=== PATIENT | male | born 1995 ===

== ENCOUNTER 2018-10-23 09:41 | Inpatient (IN) | payer OTHER ==
[~2018-10-23] VITALS: Ht 180.3 cm; Wt 93.4 kg
[~2018-10-23 09:41] MED LIST: ceFAZolin sod 1 GM in NS 55 ML IVPB ONE; ceFAZolin sod 2 GM in D5W 110 ML IVPB ONE
[2018-12-17] MEDS ORDERED: NKM (14:13)
[2018-12-18] VITALS (8 sets, daily range): BP systolic 114–152; BP diastolic 55–88
[2018-12-18] MEDS ORDERED: Rocuronium Bromide 50mg/5ml Inj IV ONE (06:35)
[2018-12-18] MEDS ORDERED: LR 1000ml 1,000 ML IVLG SCH (06:39)
--- NOTE | 2018-12-18 06:40 | Anethesia Preoperative Eval ---
Anesthesia Pre-op PMH/ROS General Date of Evaluation: Dec 18, 2018 Time of Evaluation: 07:06 Anesthesiologist: April ASA Score: ASA 2 Mallampati Score Class I : Soft palate, uvula, fauces, pillars visible Class II: Soft palate, uvula, fauces visible Class III: Soft palate, base of uvula visible Class IV: Only hard plate visible Mallampati Classification: Class I Surgeon: Javier Diagnosis: Back Pain Surgical Procedure: L4-5, L5-S1, Microdisectomy, Hemilaminotomy Anesthesia History: none Family History: no anesthesia problems Allergies: Coded Allergies: No Known Allergies (Unverified , 10/19/18) Medications: see eMAR Patient NPO?: Yes NPO Date: Dec 17, 2018 NPO Time: 2100 Past Medical History Cardiovascular: Reports: HTN Other: obesity - BMI 31 Anesthesia Pre-op Phys. Exam Physician Exam Last Vital Signs Date Time Temp Pulse Resp B/P (MAP) Pulse Ox O2 Delivery O2 Flow Rate FiO2 12/18/18 06:16 Room Air Constitutional: NAD Neurologic: CN 2-12 intact Cardiovascular: RRR Respiratory: CTA Gastrointestinal: S/NT/ND Airway Exam Mallampati Score: Class I MO: full ROM: full Teeth: intact Anesthesia Pre-op A/P Risk Assessment & Plan Assessment: ASA 2 Plan: GA, SED, GlideScope Go Status Change Before Surgery: No Pre-Antibiotics Dru Grams Ancef IV Given Within 1 Hr of Incision: Yes Time Given: 07:31 Wm Chen MD Dec 18, 2018 06:40
[2018-12-18] MEDS ORDERED: oxyCODONE HCL/Acetaminophen 5/325mg ORAL PRN (06:45)
[2018-12-18] MEDS ORDERED: Acetaminophen (Non formulary) 100 ML IV ONE (06:45)
[2018-12-18] MEDS ORDERED: Metoclopramide 10mg/2ml Inj IVP PRN ×2 (06:45→07:30)
[2018-12-18] MEDS ORDERED: Midazolam 2mg/2ml Inj IVP PRN (06:45)
[2018-12-18] MEDS ORDERED: LORazepam Inj 2mg/ml 1ml IV PRN (06:45)
[2018-12-18] MEDS ORDERED: DiphenhydrAMINE 50mg/ml Inj IVP PRN (06:45)
[2018-12-18] MEDS ORDERED: HYDROcodone/Acetamin 5/325 tab ORAL PRN ×2 (06:45→07:30)
[2018-12-18] MEDS ORDERED: Ketorolac 30mg Inj IV PRN ×2 (06:45)
[2018-12-18] MEDS ORDERED: HYDROcodone/Acetamin 7.5/325 tab ORAL PRN ×3 (06:45→07:30)
[2018-12-18] MEDS ORDERED: fentaNYL 100 mcg/2 mL IV PRN (06:45)
[2018-12-18] MEDS ORDERED: Labetalol 5mg/ml 20ml vial IV PRN (06:45)
[2018-12-18] MEDS ORDERED: Meperidine 50mg/ml Inj(FOR RIGORS ONLY) IVP PRN (06:45)
[2018-12-18] MEDS ORDERED: Atropine Sulfate 0.4mg/ml inj IVP PRN (06:45)
[2018-12-18] MEDS ORDERED: Hydromorphone 0.5mg/0.5ml inj IVP PRN (06:45)
[2018-12-18] MEDS ORDERED: Lidocaine 1% MPF 10mg/ml 5ml ONE (06:49)
[2018-12-18] MEDS ORDERED: Dexamethasone 4mg/ml vial ONE (06:49)
[2018-12-18] MEDS ORDERED: fentaNYL 100 mcg/2 mL IV ONE ×3 (06:50→09:05)
[2018-12-18] MEDS ORDERED: Lidocaine 1% Plain 30 ml INJ ONE (06:54)
[2018-12-18] MEDS ORDERED: NS Irrig 1000ml ONE (07:00)
[2018-12-18] MEDS ORDERED: Propofol 1,000mg/ 100ml btl IV ONE (07:00)
[2018-12-18] MEDS ORDERED: Sterile Water Irrig 1000ml IRRIG ONE (07:00)
[2018-12-18] MEDS ORDERED: Vancomycin 1gm vial IVPB ONE (07:00)
[2018-12-18] MEDS ORDERED: ceFAZolin sod 2 GM in D5W 110 ML IVPB ONE (07:00)
[2018-12-18] MEDS ORDERED: LR 1000ml ONE (07:00)
[2018-12-18] MEDS ORDERED: Ropivacaine 5mg/ml Vial 30ml INJ ONE (07:01)
[2018-12-18] MEDS ORDERED: Thrombin 5000 units TOPIC ONE (07:01)
[2018-12-18] MEDS ORDERED: Gelfoam Size TOPIC ONE (07:01)
[2018-12-18] MEDS ORDERED: Bacitracin 50000 Units Vial ONE (07:01)
--- NOTE | 2018-12-18 07:09 | Immediate Post-Op Evaluation ---
Immediate Post-Op Evalulation Immediate Post-Op Evalulation Procedure: L4-5, L5-S1, Microdisectomy, Hemilaminotomy Date of Evaluation: Dec 18, 2018 Time of Evaluation: 09:35 IV Fluids: 700 LR Blood Products: 0 Estimated Blood Loss: 25 Urinary Output: 150 Blood Pressure Systolic: 157 Blood Pressure Diastolic: 88 Pulse Rate: 79 Respiratory Rate: 16 O2 Sat by Pulse Oximetry: 100 Temperature (Fahrenheit): 97.4 Pain Score (1-10): 2 Nausea: No Vomiting: No Complications 0 Patient Status: awake, reacts, patent, extubated, none Hydration Status: adequate Dru Grams Ancef IV Given Within 1 Hr of Incision: Yes Time Given: 07:31 Wm Chen MD Dec 18, 2018 07:09
--- NOTE | 2018-12-18 07:10 | 48 Hour Post Anesthesia Eval ---
Post Anesthesia Evaluation Procedure: L4-5, L5-S1, Microdisectomy, Hemilaminotomy Date of Evaluation: Dec 18, 2018 Time of Evaluation: 11:54 Blood Pressure Systolic: 133 0: 78 Pulse Rate: 81 Respiratory Rate: 18 Temperature (Fahrenheit): 98.2 O2 Sat by Pulse Oximetry: 99 Airway: patent Nausea: No Vomiting: No Pain Intensity: 2 Hydration Status: adequate Cardiopulmonary Status: Stable Mental Status/LOC: patient returned to baseline Follow-up Care/Observations: 0 Post-Anesthesia Complications: 0 Follow-up care needed: N/A Wm Chen MD Dec 18, 2018 07:10
--- NOTE | 2018-12-18 07:20 | Pre-Procedure Note/Attestation ---
Pre-Procedure Note/Attestation Complete Prior to Procedure Planned Procedure: right Procedure Narrative: Right sided hemilaminotomy foraminotomy microdiscectomy of Lumbar 45 and Lumbar [id number] Indications for Procedure Pre-Operative Diagnosis: Herniation L45,5S`1 Attestation I attest that I discussed the nature of the procedure; its benefits; risks and complications; and alternatives (and the risks and benefits of such alternatives ), prior to the procedure, with the patient (or the patient's legal cash applications representative). I attest that, if there was a reasonable possibility of needing a blood transfusion, the patient (or the patient's legal cash applications representative) was given the [place] [employer] standardized written summary, pursuant to the [place] Blood Safety Act ([place] Health and Safety Code # 1645, as amended). I attest that I re-evaluated the patient just prior to the surgery and that there has been no change in the patient's H&P, except as documented below: Yonis Herrera MD Dec 18, 2018 07:20
--- NOTE | 2018-12-18 07:21 | Brief Operative Note ---
Immediate Post Operative Note Operative Note Chief Complaint: back pain and radiculopathy right more Pre-op Diagnosis: Herniation L45,5S`1 Procedure: Right sided hemilaminotomy foraminotomy microdiscectomy of Lumbar 45 and Lumbar [id number] Post-op Diagnosis: same as pre-op Findings: consistent w/pre-op dx studies Surgeon: Javier Pick Up Man: Khari Anesthesiologist: April Anesthesia: general Specimen: none Complications: none Condition: stable Fluids: IVF Estimated Blood Loss: minimal Drains: none Implant(s) used?: No Yonis Herrera MD Dec 18, 2018 07:21
[2018-12-18] MEDS ORDERED: Milk of Magnesia 30ml Ud ORAL PRN (07:30)
[2018-12-18] MEDS ORDERED: Chloraseptic Spray 20mL Bottle ORAL PRN (07:30)
[2018-12-18] MEDS ORDERED: Morphine Sulfate 2mg/ml Inj(IV/IM USE ONLY) IV PRN (07:30)
[2018-12-18] MEDS ORDERED: HYDROmorphone 1mg/ml Carpuject IVP PRN (07:30)
[2018-12-18] MEDS ORDERED: Morphine Sulfate 4mg/ml Inj (IV USE ONLY) IV PRN ×2 (07:30)
[2018-12-18] MEDS ORDERED: Naloxone 0.4mg/ml Inj IVP PRN (07:30)
[2018-12-18] MEDS ORDERED: Glycopyrrolate 0.2mg/ml 1ml Vial ONE (08:56)
[2018-12-18] MEDS ORDERED: Neostigmine 1mg/ml 10ml Inj ONE (08:56)
--- NOTE | 2018-12-18 11:00 | NUR ---
NURSE NOTES: received report from Anna RN, pt a/a/o x4 laying in bed with no signs of distress or no other issues at this time. surgical dressing dry and intact, ice pack in place. IV on the left had gauge 320 running NS+20mEq@100ml/hr. Neuro checks done. at bed side. call light within reach, bed in lowest position. side rales up x2. RN will review orders and will carry on as indicated. I will f/u as needed.
[2018-12-18] MEDS: Dexamethasone 4mg/ml vial IVP SCH ×3 (11:39→23:37)
[2018-12-18] MEDS: NS w/KCl 20mEq 1000ml 1,000 ML IV SCH ×2 (11:39→21:21)
--- NOTE | 2018-12-18 14:25 | NUR ---
PT EVALUATION NOTE Patient seen for initial evaluation s/p lumbar surgery. Patient educated in log roll technique and back precautions. Patient required SBA for bed mobility, transfers and ambulation x 20 ft. Participation limited by c/o "tightness" surgical area. Patient will benefit from skilled inpatient PT intervention to address mobility skills with adherence to back precautions, improve gait stability and for stair training. Anticipate discharge home once medically cleared by MD. No DME needs anticipated at this time. Addendum: 12/18/18 at 1455 by SHARAD MARTINEZ PT Amended: Links added.
[2018-12-18] MEDS: ceFAZolin sod 1 GM in D5W 55 ML IV SCH ×2 (15:49→23:34)
--- NOTE | 2018-12-18 16:20 | NUR ---
CASE MANAGEMENT:REVIEW 23 YR OLD MALE HERE FOR ELECTIVE SURGERY SI: BACK PAIN AND RADICULOPATHY 97.8 77 20 132/76 97% ON RA IS: TO SURGERY: HEMILAMINOTOMY,FORAMINOTOMY,MICRODISCECTOMY : TO MED/SURG 3E POSY OP
--- NOTE | 2018-12-18 16:30 | Operative Note - Dictated ---
DATE OF OPERATION: 12/18/2018 SURGEON: Yonis Herrera MD BOMB LOADER: LAURIE Harrison. ANESTHESIA: General endotracheal anesthesia. PREOPERATIVE DIAGNOSES: 1. Intractable back pain. 2. Intractable leg pain. 3. Worsening radiculopathy. 4. Weakness. 5. Herniated nucleus pulposus, L4-L5 and L5-S1 herniation. 6. Neural foraminal stenosis, L4-L5 and L5-S1. POSTOPERATIVE DIAGNOSES: 1. Intractable back pain. 2. Intractable leg pain. 3. Worsening radiculopathy. 4. Weakness. 5. Herniated nucleus pulposus, L4-L5 and L5-S1 herniation. 6. Neural foraminal stenosis, L4-L5 and L5-S1. PROCEDURES PERFORMED: 1. Right-sided L4-L5 and L5-S1 microdiscectomy. 2. L4-L5 and L5-S1 hemilaminotomy, foraminotomy and medial facetectomy. 3. L4-L5 and L5-S1 neural foraminotomy 4. Use of intraoperative microscope. 5. Supervision and interpretation of intraoperative fluoroscopy. 6. Supervision and interpretation of somatosensory-evoked potential and free running EMG monitoring. EBL: Less than 100 mL. COMPLICATIONS: None. INDICATIONS FOR THE PROCEDURE: The patient presents for intractable back pain and radiculopathy. The patient tried and failed a prolonged course of conservative management, including but not limited to chiropractic therapy, physical therapy, nonsteroidal anti-inflammatory drugs, medication, ice packs as well as epidural injection. Despite these therapies, the patient still developed recalcitrant pain and elected for definitive management in the form of right-sided L4-L5 and L5-S1 microdiscectomy, L4-L5 and L5-S1 hemilaminotomy, foraminotomy and medial facetectomy, L4-L5 and L5-S1 neural foraminotomy. CONSENT: We had a long discussion with the patient regarding definitive surgical treatment options. The patient's MRI demonstrated herniated nucleus pulposus, L4-L5 and L5-S1 herniation and neural foraminal stenosis, L4-L5 and L5-S1 and as a result, I felt the patient would benefit from the discectomy as well as neural foraminotomy at this level. We had a long discussion with the patient regarding the risks, alternatives, and benefits of surgery. Our description of the risks included a discussion in person as well as a signed consent which detailed all pertinent risks and the procedure itself. Briefly, our discussion included but was not limited to infection, bleeding, pseudarthrosis, spinal cord injury, neurovascular injury, dural tear, CSF leak, neuropathy, paralysis, permanent weakness/drop foot, paresthesias blindness, palsy and weakness. The patient understood there may be a need for revision surgery or additional procedures. Approach related complications including dysphonia, dysphagia, blindness, permanent vocal cord and neural injury, hematoma, swallowing and breathing difficulty. Medical complications including liver, kidney, shock, and cardiopulmonary failure. Anesthesia complications including , swelling. Damage to the musculature, larynx (voice injury or loss),esophagus (throat), trachea, blood vessels and muscles (muscular sprain) and lungs (pneumothorax) during this surgical procedure. Injury to deeper structures may be temporary or permanent. The patient understood these and elected to proceed. A written and verbal consent was given. We discussed the pros and cons of all the alternatives. We discussed the uncertainties associated with the decision. Afterwards I assessed the patients understanding and explored their preferences. All questions were answered and no guarantees were given. Medical clearance was obtained prior to surgery INTRAOPERATIVE FINDINGS: L4-L5: There was noticed to be a moderate sized disc herniation. The disc itself was spongy, not desiccated or dehydrated or degenerative from that standpoint. The disc was in fact initially noted to have tear in the PLL. This tear was approximately 20 degrees cephalad to caudad. Once the thecal sac and neural elements were retracted, I noticed the egress of the disc material, which was encroaching on the neural foramina. This disc itself was carefully resected with a combination of neural pituitaries and Kerrision rongeurs and arthroscopic pituitaries, which led back to the tear as mentioned in the posterior longitudinal ligament. L5-S1: There was evidence of neural foraminal stenosis. Once the thecal sac and neural foraminal elements were retracted, I noticed a very large disc herniation and fragment, which was visualized through a tear in the posterior longitudinal ligament again approximately 20 to 30 degrees inline with the posterior longitudinal ligament. The disc itself was rather large and encroaching so much that when the nerve root retractor was placed, there was obvious obstruction noted and difficulty to apply midline retraction. The disc itself was resected with a combination of neuro upbiting and arthroscopic pituitaries until the entire disc space was irrigated. Again, this was a large fragment. The disc itself in nature was not desiccated or dehydrated as would be expected with a degenerative fragment. DESCRIPTION OF PROCEDURE: Under the benefit of general endotracheal anesthesia and with the assistance of the entire operative team, the patient was moved from the rney onto the operative table in the prone position on a Yaya frame. The head was secured and positioned appropriately. Bilateral arms were secured with Gel pads and foam and all bony prominences were padded. The bilateral lower extremity SCD and DEYANIRA hose were placed for DVT prophylaxis. A surgical timeout was called which corroborated our planned procedure. Preoperative Antibiotics were administered within 30 minutes of the incision for prophylaxis. Decadron was given for preoperative steroids. Using lateral radiography, the operative levels were delineated. An incision was marked based on our interpretation of lateral radiography and afterwards the body was prepped and draped in the usual sterile manner. The family was notified that we were ready to commence surgery and were called in the waiting room hourly for updates An incision was based on our lateral fluoroscopic image to center the incision at the L5-S1 interspace. The wound was prepped and draped in the usual sterile fashion. Using a scalpel a midline incision was taken down through the skin and subcutaneous tissues until the overlying hemilamina of L4-L5 and L5-S1 were visualized. Next, using meticulous hemostasis, hemilamotomies were dissected and retractors were placed. Using a Mcbain dental, we confirmed placement at the L4-L5 and L5-S1 interspace. We next turned our attention to our decompression. A standard hemilaminotomy foraminotomy medial facetectomy was performed at each level in standard fashion using a Midas-Meño type AM8 drill bit, straight and angled curettage, and Kerrison 4 rongeurs until the lateral thecal sac margin and traversing nerve root was visualized. All remainders of the ligamentum flavum and lateral bony margins were resected in total with angled curettage and Kerrison 4 rongeurs until the lateral thecal sac margin and traversing nerve root was visualized and decompressed. We next turned our attention toward our L4-L5 microdiscectomy on the right side. A Trimble 4 was used to gently mobilize the thecal sac medially and this was held retracted with a bayonetted nerve root retractor. Once the thecal sac and neural elements were retracted, I noticed the egress of the disc material, which was encroaching on the neural foramina. The posterior margin of the disc was in fact initially noted to have tear in the PLL. This tear was approximately 20 degrees cephalad to caudad. This disc itself was carefully resected with a combination of neural pituitaries and Kerrision rongeurs and arthroscopic pituitaries, which led back to the tear as mentioned in the posterior longitudinal ligament.It was at this point that we noted a large disc protrusion with encroachment dorsally on the thecal sac neural foraminal contents. A bayonet and nerve root retractor was then placed carefully to retract the thecal sac and a discectomy was performed using a combination of a long handled 15 blade scalpel, downgoing and straight pituitaries and downgoing curettage. The disc itself was spongy, not desiccated or dehydrated or degenerative from that standpoint. Afterward the disc space was irrigated twice with 20 mL of antibiotic-impregnated saline. All loose and free-floating disc fragments were carefully resected with a narrow pituitary. Then we turned our attention toward our L5-S1 microdiscectomy on the right side. A Trimble 4 was used to gently mobilize the thecal sac medially and this was held retracted with a bayonetted nerve root retractor. It was at this point that we noted a large disc herniated nucleus pulposus protrusion with encroachment dorsally on the thecal sac neural foraminal contents. As a result of this there was evidence of neural foraminal stenosis. Once the thecal sac and neural foraminal elements were retracted, I noticed near the very large disc herniation and fragment, was emanating through a tear in the posterior longitudinal ligament again approximately 20 to 30 degrees inline with the posterior longitudinal ligament. The disc itself was rather large and encroaching so much that when the nerve root retractor was placed, there was obvious obstruction noted and difficulty to apply midline retraction. The disc itself was resected with a combination of neuro upbiting and arthroscopic pituitaries until the entire disc space was irrigated. Again, this was a large fragment. The disc itself in nature was not desiccated or dehydrated as would be expected with a degenerative fragment. With careful placement of the bayonetted nerve root retractor to retract the thecal sac and a discectomy was performed using a combination of a long handled 15 blade scalpel, downgoing and straight pituitaries and downgoing curettage. Afterward the disc space was irrigated twice with 20 mL of antibiotic-impregnated saline. All loose and free-floating disc fragments were carefully resected with a narrow pituitary. Having been satisfied with our decompression after our discectomy of all neural elements, we next turned our attention to our neural foraminoplasty/foraminotomy. This was performed with a combination of kerrison rongeurs and pituitaries which allowed for a re-creation of the neural foraminal arch at L4-L5 and L5-S1. Afterwards, hemostasis was obtained with 60 mL of antibiotic-impregnated saline followed by FloSeal and Gelfoam. After sponge and needle count were found to be correct, we next turned our attention to closure. Closure consisted of 1-0 Vicryl in standard interrupted fashion. Zosyn was placed deep to the fascia and superficial to the fascia for antibiotic prophylaxis. Skin closure was performed with 2-0 Vicryl in interrupted fashion followed by a running Monocryl for the skin. Final dressings consisted of Dermabond for the superficial skin, Telfa and Tegaderm. The patient tolerated the procedure well. The patient was extubated after the conclusion of surgery without incident. We discussed the findings of the surgery with the family upon completion of the case. At this point the patient will be transferred to the spine floor for further observation. Ynois Herrera M.D. DR: ASHLEY JOB#: [id number] CC: MARCUS
--- NOTE | 2018-12-18 17:14 | Diagnostic Imaging Report ---
INDICATION: Pain, intraoperative TECHNIQUE: Intraoperative imaging Fluoroscopy time: 5.1 seconds Total dose: 0.38452 mGym2 Total number of images: 1.51 COMPARISON: None FINDINGS: Intraoperative images demonstrate surgical tool projected posterior to the L5-S1 discs, subsequently overlying the L4-5 disc IMPRESSION: Intraoperative imaging, as described
[2018-12-18] MEDS: Docusate 100mg cap ORAL SCH (17:33)
--- NOTE | 2018-12-18 19:30 | NUR ---
NURSE NOTES: Receive a report from CELSO Cassidy. Pt is awake and alert. No acute distress noted. Op site is clear without bleeding sings. IV is running on left hand without infiltration. SCDs are on bilateral L/E. Encourage I/S every hour while awake. Call light within reach. Will continue to monitor.
--- NOTE | 2018-12-18 19:46 | NUR ---
HAND-OFF: Report given to Anh RN, pt in stable condition.
--- NOTE | 2018-12-18 21:00 | NUR ---
NURSE NOTES: After pain medication, pain relieved. No sensory change noted. No s/e noted. Call light within reach. Will continue to monitor.
[2018-12-19] VITALS: BP 124/55
[2018-12-19 04:00] VITALS: BP 123/57
[2018-12-19] MEDS: Dexamethasone 4mg/ml vial IVP SCH (05:56)
[2018-12-19] MEDS: ceFAZolin sod 1 GM in D5W 55 ML IV SCH (07:16)
[2018-12-19] MEDS: NS w/KCl 20mEq 1000ml 1,000 ML IV SCH (07:16)
--- NOTE | 2018-12-19 07:30 | NUR ---
HAND-OFF: Report given to Oscar HOUSTON. Round is done.
--- NOTE | 2018-12-19 07:45 | NUR ---
NURSE NOTES: Pt sitting in chair w/call light within reach. Pt A&Ox4, VSS, and in no apparent distress at this time. IV site intact/asymptomatic w/IVF infusing and surgical site C/D/I. Pt has no complaints or concerns at this time. Will continue to monitor.
[2018-12-19 08:00] VITALS: BP 134/74
[2018-12-19] MEDS: Docusate 100mg cap ORAL SCH (08:49)
--- NOTE | 2018-12-19 08:58 | General Progress Note ---
Assessment/Plan Assessment/Plan: Herniated nucleus pulposus, L4-L5 and L5-S1 herniation. Neural foraminal stenosis, L4-L5 and L5-S1. Right-sided L4-L5 and L5-S1 microdiscectomy. L4-L5 and L5-S1 hemilaminotomy, foraminotomy and medial facetectomy. PLAN 1. incentive spirometry 2. SCD 3. PT evaluation and therapy 4. Hydration 5. Pain management 6. discharge once stable with outpatient follow up Subjective Allergies: Coded Allergies: No Known Allergies (Unverified , 10/19/18) Subjective asked to follow up post op Objective Last 24 Hour Vital Signs Date Time Temp Pulse Resp B/P (MAP) Pulse Ox O2 Delivery O2 Flow Rate FiO2 12/19/18 08:00 98.4 69 18 134/74 (94) 99 12/19/18 04:00 98.9 80 17 123/57 (79) 96 12/19/18 00:00 99.1 84 17 124/55 (78) 96 12/18/18 21:00 Room Air 12/18/18 20:00 98.7 78 19 127/55 (79) 95 12/18/18 16:20 97.5 12/18/18 10:45 97.5 12/18/18 10:15 97.5 67 17 134/75 Room Air 12/18/18 10:00 69 15 135/78 Room Air 12/18/18 09:50 61 17 114/63 Simple Mask 6 12/18/18 09:40 77 16 120/67 Simple Mask 6 12/18/18 09:30 68 15 128/75 99 Simple Mask 6 12/18/18 09:22 81 18 99 12/18/18 09:20 97.4 79 16 152/88 100 Simple Mask 6 Intake and Output 12/18/18 12/19/18 19:00 07:00 Intake Total 2850 ml 1460 ml Balance 2850 ml 1460 ml Intake Oral 2600 ml 360 ml IV Total 250 ml 1100 ml # Voids 3 3 Height (Feet): 5 Height (Inches): 11.00 Weight (Pounds): 206 Objective WDWN NAD clear breath sounds bilaterally without rhonchi or wheeze [id number] without MRG NABS nontender no HSM no CCE nonfocal Randall Kumar MD Dec 19, 2018 08:58
--- NOTE | 2018-12-19 11:15 | NUR ---
NURSE NOTES: Pt discharged home and escorted downstairs via w/c to 's private vehicle. All belongings accounted for; D/C summary provided; and ID wristband and IV S/L removed.
--- NOTE | 2018-12-21 11:58 | Discharge Summary ---
Discharge Summary Hospital Course Date of Admission Dec 18, 2018 at 05:37 Date of Discharge Dec 19, 2018 at 11:11 Admitting Diagnosis LUMBAR RADICULOPATHY, HERNIATION, INTRACTABLE BACK PAIN Reason for Hospitalization: elective surgery HPI Ayush Barker is a 23 year old male who was admitted on Dec 18, 2018 at 05:37 for Herniated Nucleus Pulposus, Pain, Radiculopathy Consultations dr Kumar -IM Procedures s/p 12/18/[address] Herrera 1. Right-sided L4-L5 and L5-S1 microdiscectomy. 2. L4-L5 and L5-S1 hemilaminotomy, foraminotomy and medial facetectomy. 3. L4-L5 and L5-S1 neural foraminotomy through a transpedicular intraforaminal approach. 4. Use of intraoperative microscope. 5. Supervision and interpretation of intraoperative fluoroscopy. 6. Supervision and interpretation of somatosensory-evoked potential and free running EMG monitoring. Hospital Course status post surgery course of recovery uneventful initially IV fluids s/p perioperative antibiotic and steroid neurovascular status closely monitored, remains stable incision with dressing clean , dry, and intact pain management addressed , and pain controlled remains hemodynamically stable ambulated with PT fall precautions maintained; safe for ambulation DVT prophylaxis with SCD provided use of incentive spirometry was encouraged while in the bed tolerated diet , IV fluids discontinued Chloraseptic spray was on board as needed for comfort voided freely bowel regimen instituted patient was stable for discharge discharge instructions provided follow up with surgeon in the office as advised FINAL DIAGNOSES 1. Intractable back pain. 2. Intractable leg pain. 3. Worsening radiculopathy. 4. Weakness. 5. Herniated nucleus pulposus, L4-L5 and L5-S1 herniation. 6. Neural foraminal stenosis, L4-L5 and L5-S1. 7. s/p Right sided hemilaminotomy foraminotomy microdiscectomy of Lumbar 4-5 and Lumbar 5 Sacral1 Discharge Condition Upon Discharge: stable Discharge Disposition Patient was discharged to Home (01) Discharge Instructions Discharge Instructions Special Instructions I have been assigned to complete a D/C Summary on this account. I was not involved in the patient management Nicci Montaño NP Dec 21, 2018 11:58
== END 2018-12-19 11:11 | disposition home or self-care (01) | DRG 520 ==
LOC: SDSOVERFLO 12-18 05:37 → 3E 12-18 10:40
PROC: 01NB0ZZ Release Lumbar Nerve, Open Approach (ICD-10-PCS; principal; 2018-12-18 07:00)
PROC: 0SB20ZZ Excision of Lumbar Vertebral Disc, Open Approach (ICD-10-PCS; principal; 2018-12-18 07:00)
PROC: 01NR0ZZ Release Sacral Nerve, Open Approach (ICD-10-PCS; principal; 2018-12-18 07:00)
PROC: 0SB40ZZ Excision of Lumbosacral Disc, Open Approach (ICD-10-PCS; principal; 2018-12-18 07:00)
DX: M51.16 Intervertebral disc disorders with radiculopathy, lumbar region (principal); V89.2XXS Person injured in unspecified motor-vehicle accident, traffic, sequela; M51.17 Intervertebral disc disorders with radiculopathy, lumbosacral region; M48.061 Spinal stenosis, lumbar region without neurogenic claudication; M48.07 Spinal stenosis, lumbosacral region
CPT/HCPCS: 36415; 72020; 76000; 86850; 86900; 86901; 87081; J2405; J2710